=== PATIENT | female | born 1975 | race Two or more races ===

== ENCOUNTER 2022-03-02 15:47 | Emergency (ER) | payer BC, OTHER ==
[~2022-03-02] VITALS: Ht 162.6 cm; Wt 90.9 kg
[2022-03-02 16:43] VITALS: BP 147/90
[2022-03-02] MEDS ORDERED: KETOROLAC TROMETH 60MG/2ML VIAL IM ONE (16:45)
[2022-03-02] MEDS ORDERED: IBUP800T27 PO (17:33)
[2022-03-02] MEDS ORDERED: METH750T22 PO (17:33)
== END 2022-03-02 17:38 | disposition home or self-care (01) ==
LOC: ER 15:47 → EDBD 15:47 → ER 17:38
DX: S16.1XXA Strain of muscle, fascia and tendon at neck level, initial encounter (principal); S39.012A Strain of muscle, fascia and tendon of lower back, initial encounter; V49.9XXA Car occupant (driver) (passenger) injured in unspecified traffic accident, initial encounter; Y93.89 Activity, other specified; Y92.410 Unspecified street and highway as the place of occurrence of the external cause; Y99.8 Other external cause status
CPT/HCPCS: 72040; 72070; 96372; 99284; J1885